=== PATIENT | male | born 1940 | race Caucasian/White ===

== ENCOUNTER → 2022-12-28 12:31 | Outpatient (BNVA) | payer BC, MEDICARE, SELFPAY | PROVIDERS: PCP Family Medicine; Visit Provider Psychiatry & Neurology Neurology ==

== ENCOUNTER 2023-05-05 12:08 | Outpatient (AMB) | payer MEDICARE, BC, SELFPAY ==
--- NOTE | 2023-05-05 12:11 | A.OFFVIS_ITS ---
Intake Vital Signs 05/05/23 12:38 Height 5 ft 6 in Weight 123 lb 6 oz BMI 19.9 BP 142/78 H Blood Pressure Location Rt brachial Position Sitting Respiration 16 Pulse 66 Pulse Source Pulse Oximeter Pulse Oximetry (%) 98 Oxygen Delivery Method Room Air Intake Visit Reasons: 4m follow up Dementia/Confirmed Intake Note: Pt presents to the office for his 4 month follow up for dementia. Pt reports he has been stable since last visit. Occasionally has difficulty falling and staying asleep for the night. Pt has moved into an assisted living facility, alone since January 07, 2023. Allergies No Known Allergies Allergy (Verified 05/05/23 12:38) Medication List - Last Reconciled 05/05/23 by Karla Guy MD atorvastatin 20 mg PO DAILY cholecalciferol (vitamin D3) (Vitamin D3) 50 mcg PO DAILY donepezil (Aricept) 10 mg PO DAILY sertraline 50 mg PO DAILY HPI HPI Comments History of Present Illness Details 82y/o male with dementia comes follow up management. He had a neuropsych eval in Jul 2022 - c/w moderate to severe dementia. He started memory issues over 5 years ago and has worsened in the past 2 years. He is accompanied by his niece who helps with the history. He lives alone and is independent in most ADLs.His brother and niece live close by. He has word finding difficulty , misplaces things around the house, difficulty remembering conversations etc. He has some cousins with dementia. He is more irritable and can be aggressive at times. It is not clear if he has hallucinations. No h/o head injury Hi sleep is OK Not clear if he has vivid dreams PFSH Medical History Alzheimer's dementia Vitamin D deficiency Hyperlipidemia GERD (gastroesophageal reflux disease) Depression Anxiety Dementia Surgical History H/O colonoscopy Family History Mother Thyroid cancer Brother Hypertension Prostate cancer Social History Household Members: None Housing: Assisted Living Facility Are you a primary post acute care registered nurse to a significant other at home: No Do you presently have visiting nurse or other home services: No Alcohol intake: current Alcohol intake frequency: a few times a month Alcohol type: beer Patient Tobacco Use Status: Former Tobacco user Years Smoked: 3 service: Yes ([employer]) Current occupational status: retired Cognitive needs: No Hearing needs: No Vision needs: Yes Physical Exam Const General: cooperative, healthy appearing and comfortable Nutritional Appearance: average body habitus Orientation/consciousness: oriented to person Eyes Pupils: Equal, round and reactive pupils present Neuro General: oriented to person, tone normal and moves all extremities Cranial nerves: Yes Equal, round and reactive pupils present, Yes Bilaterally intact EOM present, Yes Nystagmus not present, Yes Normal facial strength present and Yes Midline tongue present Cognition (Neuro): abnormal cognition Gait exam (Neuro): Other gait observations present (slow stooped ) Motor exam (neuro): 5/5 motor strength present throughout and Normal motor muscle tone present throughout Coordination: [id number] test normal Assessment & Plan Assessment & Plan (1) Alzheimer's dementia: Code(s): G30.9 - Alzheimer's disease, unspecified; F02.80 - Dementia in other diseases classified elsewhere, unspecified severity, without behavioral disturbance, psychotic disturbance, mood disturbance, and anxiety Plan Patient moved to half-way and participates in activities. NO DRIVING Continue donepezil 10 mg qd I will start him on memantine XR 7 mg qd and titrate upto 28 mg qd Medications: New memantine 7 mg PO DAILY 30 ea 0RF Coding Level of Care Code Est Pt Level 4 (75843) Diagnoses Alzheimer's dementia G30.9; F02.80
[2023-05-05 12:38] VITALS: BP 142/78; PULSE 66; RESP 16; O2SAT 98; BMI 19.9
== END 2023-05-05 13:03 | disposition home or self-care (01) ==
PROVIDERS: PCP Family Medicine; Visit Provider Psychiatry & Neurology Neurology
DX: G30.9 Alzheimer's disease, unspecified (principal); F02.80 Dementia in other diseases classified elsewhere, unspecified severity, without behavioral disturbance, psychotic disturbance, mood disturbance, and anxiety
CPT/HCPCS: 99214

== ENCOUNTER → 2023-05-05 12:08 | Outpatient (BNVA) | payer BC, MEDICARE, SELFPAY | PROVIDERS: PCP Family Medicine; Visit Provider Psychiatry & Neurology Neurology ==

== ENCOUNTER 2023-11-02 13:14 | Outpatient (AMB) | payer BC, MEDICARE, SELFPAY ==
--- NOTE | 2023-11-02 13:27 | MHC.OFFVIS ---
Intake Vital Signs 11/02/23 13:29 Height 5 ft 6 in Weight 125 lb 8 oz BMI 20.3 BP 118/64 Blood Pressure Location Rt brachial Position Sitting Respiration 16 Pulse 80 Pulse Source Pulse Oximeter Pulse Oximetry (%) 97 Oxygen Delivery Method Room Air Intake Visit Reasons: 6 mnts f/u for Dementia-CONF Intake Note: Pt presents to the office for a 6 month follow up for Alzheimer's and dementia. Import Dispatcher Required: No Allergies No Known Allergies Allergy (Verified 11/02/23 13:28) Medication List - Last Reconciled 11/02/23 by Karla Guy MD atorvastatin 20 mg PO DAILY cholecalciferol (vitamin D3) (Vitamin D3) 50 mcg PO DAILY donepezil 10 mg PO QPM memantine 28 mg PO DAILY sertraline 50 mg PO DAILY HPI HPI Comments History of Present Illness Details 83y/o male with dementia comes follow up management. He had a neuropsych eval in Jul 2022 - c/w moderate to severe dementia. He started memory issues over 5 years ago and has worsened in the past 2 years. He is accompanied by his niece who helps with the history. He lives in Assisted Living and is independent in most ADLs.His brother and niece live close by. He has word finding difficulty , misplaces things around the house, difficulty remembering conversations etc. He has some cousins with dementia. He is more irritable and can be aggressive at times. It is not clear if he has hallucinations. No h/o head injury Hi sleep is OK Not clear if he has vivid dreams PFSH Medical History Alzheimer's dementia Vitamin D deficiency Hyperlipidemia GERD (gastroesophageal reflux disease) Depression Anxiety Dementia Surgical History H/O colonoscopy Family History Mother Thyroid cancer Brother Hypertension Prostate cancer Social History Household Members: None Housing: Assisted Living Facility Are you a primary neurocritical care physician to a significant other at home: No Do you presently have visiting nurse or other home services: No Alcohol intake: current Alcohol intake frequency: a few times a month Alcohol type: beer Patient Tobacco Use Status: Former Tobacco user Years Smoked: 3 service: Yes ([employer]) Current occupational status: retired Cognitive needs: No Hearing needs: No Vision needs: Yes Physical Exam Vital Signs: Last Vital Signs Pulse 80 11/02/23 13:29 Resp 16 11/02/23 13:29 BP 118/64 11/02/23 13:29 Pulse Ox 97 11/02/23 13:29 Oxygen Delivery Method Room Air 11/02/23 13:29 BMI result Body Mass Index 20.3 Const General: cooperative, healthy appearing and comfortable Nutritional Appearance: average body habitus Orientation/consciousness: oriented to person Eyes Pupils: Equal, round and reactive pupils present Neuro General: oriented to person, tone normal and moves all extremities Cranial nerves: Yes Equal, round and reactive pupils present, Yes Bilaterally intact EOM present, Yes Nystagmus not present, Yes Normal facial strength present and Yes Midline tongue present Cognition (Neuro): abnormal cognition Gait exam (Neuro): Other gait observations present (slow stooped ) Motor exam (neuro): 5/5 motor strength present throughout and Normal motor muscle tone present throughout Coordination: [id number] test normal Orientation What is the (year) (season) (date) (day) (month)?: season Where are we (state) (county) (town or city) (hospital) (floor)?: state, town or city, hospital/clinic and floor Registration Name of 3 unrelated objects clearly and slowly, then ask patient to repeat all 3 of them. (1st repeat determines score. Make sure they can repeat all three): object 1, object 2 and object 3 Language Show patient a wristwatch & ask what it is. Repeat for pencil.: watch and pencil Ask the patient to repeat the phrase 'No ifs, ands, or buts' after you.: correct Ask the patient to 'take a piece of paper with their right hand' 'fold paper in half' 'place paper on floor': take paper in right hand Score Score: 12 Assessment & Plan Assessment & Plan (1) Alzheimer's dementia: Code(s): G30.9 - Alzheimer's disease, unspecified; F02.80 - Dementia in other diseases classified elsewhere, unspecified severity, without behavioral disturbance, psychotic disturbance, mood disturbance, and anxiety Plan NO DRIVING Continue donepezil 10 mg qd Continue memantine XR 28 mg qd Coding Level of Care Code Est Pt Level 4 (49656) Diagnoses Alzheimer's dementia G30.9; F02.80
[2023-11-02 13:29] VITALS: BP 118/64; PULSE 80; RESP 16; O2SAT 97; BMI 20.3
== END 2023-11-02 13:57 | disposition home or self-care (01) ==
PROVIDERS: PCP Family Medicine; Visit Provider Psychiatry & Neurology Neurology
DX: G30.9 Alzheimer's disease, unspecified (principal); F02.80 Dementia in other diseases classified elsewhere, unspecified severity, without behavioral disturbance, psychotic disturbance, mood disturbance, and anxiety
CPT/HCPCS: 99214

== ENCOUNTER → 2023-11-02 13:14 | Outpatient (BNVA) | payer BC, MEDICARE, SELFPAY | PROVIDERS: PCP Family Medicine; Visit Provider Psychiatry & Neurology Neurology ==

== ENCOUNTER 2024-05-03 13:03 | Outpatient (AMB) | payer MEDICARE, BC, SELFPAY ==
[2024-05-03 13:23] VITALS: BP 122/70; PULSE 90; O2SAT 98; BMI 19.9
--- NOTE | 2024-05-03 13:23 | MHC.OFFVIS ---
Vital Signs 05/03/24 13:23 Height 5 ft 6 in Weight 123 lb BMI 19.9 BP 122/70 Blood Pressure Location Rt brachial Position Sitting Pulse 90 Pulse Source Pulse Oximeter Pulse Oximetry (%) 98 Oxygen Delivery Method Room Air Intake Visit Reasons: 6 month F/U Intake Note: Patient presents for ollow up Allergies No Known Allergies Allergy (Verified 05/03/24 13:25) Medication List - Last Reconciled 05/03/24 by Karla Guy MD atorvastatin 20 mg PO DAILY cholecalciferol (vitamin D3) (Vitamin D3) 50 mcg PO DAILY donepezil 10 mg PO QPM memantine 28 mg PO DAILY sertraline 50 mg PO DAILY HPI Comments Details: 83y/o male with dementia comes follow up management. No change in memory.He feels like he sees some shadows .He has some irritability . Mood is stable. He has some word finding difficulties. He goes to gym and music session at the Assisted Living. He had a neuropsych eval in Jul 2022 - c/w moderate to severe dementia. He started memory issues over 5 years ago and has worsened in the past 2 years. He is accompanied by his niece who helps with the history. He lives in Assisted Living and is independent in most ADLs.His brother and niece live close by. He has word finding difficulty , misplaces things around the house, difficulty remembering conversations etc. He has some cousins with dementia. No h/o head injury Hi sleep is OK Not clear if he has vivid dreams He feel he is slower. [facility] Medical History Alzheimer's dementia Vitamin D deficiency Hyperlipidemia GERD (gastroesophageal reflux disease) Depression Anxiety Dementia Surgical History H/O colonoscopy Family History Mother Thyroid cancer Brother Hypertension Prostate cancer Social History Household Members: None Housing: Assisted Living Facility Are you a primary animal caretaker to a significant other at home: No Do you presently have visiting nurse or other home services: No Alcohol intake: current Alcohol intake frequency: a few times a month Alcohol type: beer Patient Tobacco Use Status: Former Tobacco user Years Smoked: 3 service: Yes ([employer]) Current occupational status: retired Cognitive needs: No Hearing needs: No Vision needs: Yes Physical Exam Vital Signs: Last Vital Signs Pulse 90 05/03/24 13:23 BP 122/70 05/03/24 13:23 Pulse Ox 98 05/03/24 13:23 Oxygen Delivery Method Room Air 05/03/24 13:23 BMI result Body Mass Index 19.9 Const General: cooperative, healthy appearing and comfortable Nutritional Appearance: average body habitus Orientation/consciousness: oriented to person Eyes Pupils: Equal, round and reactive pupils present Neuro General: oriented to person, tone normal and moves all extremities Cranial nerves: Yes Equal, round and reactive pupils present, Yes Bilaterally intact EOM present, Yes Nystagmus not present, Yes Normal facial strength present and Yes Midline tongue present Cognition (Neuro): abnormal cognition Gait exam (Neuro): Other gait observations present (slow stooped ) Motor exam (neuro): 5/5 motor strength present throughout and Normal motor muscle tone present throughout Coordination: [id number] test normal Assessment & Plan Assessment & Plan (1) Alzheimer's dementia: Code(s): G30.9 - Alzheimer's disease, unspecified; F02.80 - Dementia in other diseases classified elsewhere, unspecified severity, without behavioral disturbance, psychotic disturbance, mood disturbance, and anxiety Category: Medical Qualifiers: Alzheimer's disease onset: late onset Dementia severity: severe Dementia behavioral or psychological symptom: without behavioral, psychotic, or mood disturbance or anxiety Qualified Code(s): G30.1 - Alzheimer's disease with late onset; F02.C0 - Dementia in other diseases classified elsewhere, severe, without behavioral disturbance, psychotic disturbance, mood disturbance, and anxiety Plan NO DRIVING Continue donepezil 10 mg qd Continue memantine XR 28 mg qd Continue exercises . Medications: Refilled donepezil 10 mg PO QPM 30 ea 12RF memantine 28 mg PO DAILY 30 ea 6RF Coding Level of Care Code Est Pt Level 4 (28044) Complex EM visit Add On G2211 Diagnoses Severe late onset Alzheimer's dementia without behavioral disturbance, psychotic disturbance, mood disturbance, or anxiety G30.1; F02.C0 Alzheimer's disease onset: late onset Dementia severity: severe Dementia behavioral or psychological symptom: without behavioral, psychotic, or mood disturbance or anxiety
== END 2024-05-03 14:02 | disposition home or self-care (01) ==
PROVIDERS: PCP Family Medicine; Visit Provider Psychiatry & Neurology Neurology
DX: G30.1 Alzheimer's disease with late onset (principal); F02.C0 Dementia in other diseases classified elsewhere, severe, without behavioral disturbance, psychotic disturbance, mood disturbance, and anxiety
CPT/HCPCS: 99214

== ENCOUNTER → 2024-05-03 13:03 | Outpatient (BNVA) | payer BC, MEDICARE, SELFPAY | PROVIDERS: PCP Family Medicine; Visit Provider Psychiatry & Neurology Neurology ==